=== PATIENT | male | born 1975 | race American Indian/Alaskan Native ===

== ENCOUNTER 2020-09-22 19:25 | Emergency (ER) | payer SELFPAY ==
[2020-09-22 19:43] VITALS: BP 130/84
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
== END 2020-09-22 23:47 | disposition home or self-care (01) ==
LOC: ED 19:25
DX: S13.9XXA Sprain of joints and ligaments of unspecified parts of neck, initial encounter (principal); M62.838 Other muscle spasm; I10 Essential (primary) hypertension; Z79.899 Other long term (current) drug therapy; V49.49XA Driver injured in collision with other motor vehicles in traffic accident, initial encounter; Y93.89 Activity, other specified; Y92.488 Other paved roadways as the place of occurrence of the external cause; Y99.8 Other external cause status
CPT/HCPCS: 72125; 99283